=== PATIENT | male | born 1945 | race Caucasian/White ===

== ENCOUNTER 2016-08-20 11:36 | Emergency (ER) | payer BC, OTHER ==
[~2016-08-20] VITALS: Ht 177.8 cm; Wt 120.4 kg
[~2016-08-20 11:36] MED LIST: ATORVASTATIN CA40 MG PO; ATORVASTATIN CA80 MG PO; AUGMENTIN875 MG PO; BUPROPION XL150 MG PO; BYSTOLIC10 MG PO; CHILDREN S PO; CYMBALTA60 MG PO; DAYTIME COLD F PO; DOXAZOSIN MESYLA2 MG PO; DOXAZOSIN MESYLA4 MG PO; DURAGESIC25 MCG TD; DYMISTA NASAL S23 GM BOTH NARES; FUROSEMIDE20 MG PO; IBUPROFEN800 MG PO; K-DUR20 MEQ PO; LEVOTHYROXINE100 MCG PO; LEVOTHYROXINE75 MCG PO; LOSARTAN-HCTZ1 EAC1 PO; LYRICA25 MG PO; NIFEDIPINE ER30 MG PO; NIFEDIPINE ER60 MG PO; OXYCODONE HCL15 MG PO; PERCOCET 5/31 TABLET PO; PRAMIPEXOLE D0.25 MG PO; PRAMIPEXOLE DI0.5 MG PO; TYLENOL REGULA325 MG PO; ZANTAC300 MG PO; [UNRECOGNIZED DRUG - OTHER] PO
[2016-08-20 15:25] LABS: EOSINOPHIL (%) 1.8 % (0-5); EOSINOPHIL COUNT 0.2 K/uL (0-0.3); HEMATOCRIT 41.2 % (38.0-50.0); IMMATURE GRANULOCYTE (%) 0.3 % (0.0-0.7); INSTRUMENT ABS NEUTROPHIL CT 6.4 K/uL; LYMPHOCYTE COUNT 1.7 K/uL (1.0-2.8); MCH 30.6 PG (29.0-34.0); MCHC 33.5 G/DL (30.0-36.0); MCV 91.4 FL (86-99); MEAN PLAT.VOLUME 9.5 uM^3 (9.0-12.4); MONOCYTE (%) 6.3 % (3-12); MONOCYTE COUNT 0.6 K/uL (0-0.8); NEUTROPHIL (%) 72.2 % (45-76); NEUTROPHIL COUNT 6.4 K/uL (1.8-6.4); PLATELET COUNT 201 K/uL (156-360); RBC DIS.WIDTH-CV 12.7 % (11.8-14.6); RBC DIS.WIDTH-SD 42.9 % (39-53); RED BLOOD COUNT 4.51 M/uL (4.00-5.50); WHITE BLOOD COUNT 8.9 K/uL (4.1-10.2)
[2016-08-20 15:35] LABS: CHLORIDE 105 mEq/L (99-109); POTASSIUM 4.5 mEq/L (3.7-5.4); SODIUM 142 mEq/L (136-147)
[2016-08-20 15:36] LABS: GLUCOSE 103 mg/dL (70-99)
[2016-08-20 15:38] LABS: ANION GAP 10 MEQ/L (2-14)
[2016-08-20 15:40] LABS: GFR ESTIMATE (CALCULATED) > 59 mL/min/
[2016-08-20 15:41] LABS: UREA NITROGEN (BUN) 22 mg/dL (9-23)
[2016-08-20] MEDS ORDERED: MOTRIN800 MG PO (17:58)
[2016-08-20 18:41] VITALS: BP 132/72
== END 2016-08-20 18:49 | disposition home or self-care (01) ==
LOC: EME 11:36
PROVIDERS: Emergency Medicine
DX: S80.01XA Contusion of right knee, initial encounter (principal); S80.11XA Contusion of right lower leg, initial encounter; M25.571 Pain in right ankle and joints of right foot; W19.XXXA Unspecified fall, initial encounter; I10 Essential (primary) hypertension; Z87.891 Personal history of nicotine dependence
CPT/HCPCS: 73564; 73590; 73700; 80048; 85025; 93971; 99281; 99284